=== PATIENT | female | born 2005 | race Two or more races ===

== ENCOUNTER 2024-04-03 09:31 | Emergency (ER) | payer OTHER, SELFPAY ==
[2024-04-03 09:42] VITALS: BP 131/91; PULSE 100; RESP 16; TEMP 37.2; O2SAT 98; BMI 27.3
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
== END 2024-04-03 11:21 | disposition home or self-care (01) ==
PROVIDERS: Emergency Provider Emergency Medicine
DX: M25.561 Pain in right knee (principal)
CPT/HCPCS: 73562; 99283